=== PATIENT | male | born 1940 | race Caucasian/White ===

== ENCOUNTER 2022-08-01 10:13 | Outpatient (CLI) | payer MEDICARE, SELFPAY | END 2022-08-01 10:14 | disposition home or self-care (01) | PROVIDERS: PCP Family Medicine; Visit Provider Family Medicine | DX: R07.89 Other chest pain (principal) | CPT/HCPCS: 80048; 80061 ==

== ENCOUNTER 2022-08-07 13:48 | Outpatient (CLI) | payer MEDICARE, SELFPAY ==
[2022-08-07 15:03] VITALS: BP 164/79; PULSE 64
--- NOTE | 2022-08-07 15:37 | W.PM.STED ---
Stress Test Note Date Date of test: 08/07/22 Providers Referring provider: Aure Nagy Primary care provider: Richar Gerber Stress test physician: Layton Cruz Stress Test Note Stress test ordered: Stress Echo Indication for test: Chest pain Results discussion: Patient is a very nice 82-year-old gentleman who presents for the above test after discussion the risks benefits and side effects he would like to proceed, pretest EKG shows normal sinus rhythm with a ventricular rate of 60, blood pressure 135/78, no acute ST wave changes are seen. Standard Lico protocol is employed over a time course of 2 minutes 45 seconds, test is terminated because of fatigue, maximum heart rate was 122 which is 103% of the maximum, no acute his dysrhythmias are noted, no acute ST wave changes are noted. Conditioning was felt to be poor. Impression: Negative electrographic portion of stress echo, conditioning was felt to be poor and he did not exercised for very long,, Follow up suggested: Clinical correlation will be needed, once echo portion is read, patient is very poor conditioning, clinical correlation will be needed, if further testing is needed, 1 might consider a Lexiscan, I will leave this up to of ordering physician however. Patient left this testing facility back to baseline
== END 2022-08-07 13:49 | disposition home or self-care (01) ==
LOC: STRESS 13:49
PROVIDERS: PCP Family Medicine; Visit Provider Family Medicine
DX: R07.89 Other chest pain (principal)
CPT/HCPCS: 93016; 93325; 93351

== ENCOUNTER 2022-09-12 10:03 | Outpatient (CLI) | payer MEDICARE, SELFPAY ==
--- OUTSIDE RECORDS SUMMARY | 2022-09-14 01:43 | XMS_ITS | Continuity of Care Document ---
Author Name Unknown Organization [facility] Address [address] [address] [place] [address] Phone Care Team Providers Care Wire Tinner Name Role Phone Cindy Palmer MD Unavailable Unavailable Allergies, Adverse Reactions, Alerts Substance Reaction Status Criticality No Known allergies Medications Medication Instructions Dosage Effective Dates (start - stop) Status Comments Proventil unknownINHALER as needed - Activ e Procedures Procedure Date Colonoscopy Flex; W/remov Les- 08 Colonoscopy Flex; W/bx 1/mx Level Iv-surg Path Gross/micro 08 Colonoscopy Flex; W/bx / Advance Directives Directive Yes / No Effective Date File Name No Information Encounters Encounter Description Practice Location Reason(s) For Visit Diagnoses Date Provider Providers Copied on Encounter [facility] [employer] [facility], [address] [address], [place], [place], [id number], [place] tel:[phone] [facility] Colon Cancer ScreeningDiverti culosis Of ColonProctosigmo iditis/melanosis ColiBenign Neoplasm Lg Bowel Aug-0 7200 8 [address]. [address] [facility], [facility] [address], [place], [place], [id number], [place]. tel:[phone] [facility] [employer] [facility], [address] [address], [place], [place], [address], [place] tel:[phone] [facility] Aug-0 5200 5 No Information Referring Provider: Demian Bey MD K, [address], [place], [address]. tel:[phone] Family History Family Member Type Diagnosis Age At Onset No Information Payers Payer name Insurance type Covered libertarian ID Derek brady(olegario) Georgette CI [id number] Social History Type Description Quantity Date Captured Comments Sex Male Smoking Status No Information Chief Complaint And Reason For Visit No Information Reason For Referral Reason For Referral No Information Plan Of Treatment Date Type Action Status No Information History Of Present Illness Encounter Date Complaint History Of Prese nt Illness No Information Functional Status Date Functional Assessmen t No Information Instructions Date Instruction Additional Infor mation No Information Assessments Type Assessment Date No Information Patient Care Teams Name Effective Dates (start - stop) Status Members No Information
== END 2022-09-12 10:04 | disposition home or self-care (01) ==
LOC: NFLDREF 09-14 01:41
PROVIDERS: PCP Family Medicine; Referring Provider Family Medicine; Visit Provider Family Medicine
DX: Z13.6 Encounter for screening for cardiovascular disorders (principal)
CPT/HCPCS: 80053; 80061

== ENCOUNTER 2022-09-25 20:53 | Outpatient (CLI) | payer MEDICARE, SELFPAY | END 2022-09-25 20:54 | disposition home or self-care (01) | LOC: AMB 09-27 11:56 | PROVIDERS: PCP Family Medicine; Visit Provider Family Medicine | DX: R55 Syncope and collapse (principal) | CPT/HCPCS: A0425; A0427 ==

== ENCOUNTER 2022-09-25 21:29 | Emergency (ER) | payer MEDICARE, SELFPAY ==
[2022-09-25 21:36] VITALS: BP 127/79; PULSE 48; RESP 16; TEMP 36.7; O2SAT 98; BMI 27.8
[2022-09-25 22:51] VITALS: PULSE 56; RESP 18; O2SAT 95
--- NOTE | 2022-09-26 01:00 | ED_ITS ---
HPI - General Adult General Chief complaint: Syncope/Fainted Stated complaint: hypotension Time Seen by Provider: 09/25/22 22:16 History of Present Illness HPI narrative: 82-year-old man presenting to the emergency department after an apparent syncopal event. 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 The room was hot. Began to feel diaphoretic like he was going to pass out and thought he should sit down. Reportedly continued to breathe but was unresponsive for least 30 seconds per bystander report. EMS reported some bradycardia and pallor. Daughter is in the choir but was not present feels that this episode may have been longer. Mr. Rose denies chest pain shortness of breath. No loss of bowel bladder control. No history of seizure like activity. Did have cardiac evaluation in August of this year and while with suboptimal stress test due to fatigue/exhaustion, there were no concerning findings. Underlying history also with a sense of a fluttering or coolness that will occur intermittently described across his left collarbone and down into his upper chest of unclear etiology. Anticipating further potentially cardiac workup through primary care provider per prior conversations. Regarding these syncopal events: Similar has occurred under similar circumstances more than once. Has been in some period of dehydration and overheated and has essentially passed out. Today he does not feel he ate as well. Related Data Home Medications Medication Instructions Recorded Confirmed albuterol sulfate 90 mcg/actuation 2 inhalation PRN 01/03/22 08/21/22 aerosol inhaler aspirin 325 mg tablet 325 mg PO .twice per week 01/03/22 09/25/22 beclomethasone dipropionate 40 2 inhalation PRN 01/03/22 08/21/22 mcg/actuation HFA breath activated aerosol Previous Rx's Medication Instructions Recorded lisinopril 40 mg tablet 40 mg PO DAILY #90 tabs 03/23/22 chlorthalidone 25 mg tablet 12.5 mg PO DAILY #45 tabs 04/10/22 metoprolol tartrate 25 mg tablet 12.5 mg PO DAILY #45 tabs 04/10/22 Allergies Allergy/AdvReac Type Severity Reaction Status Date / Time hydrochlorothiazide Allergy Mild Palpitation Verified 08/21/22 13:26 s Review of Systems Status of ROS: Reports: 10 or more systems reviewed and unremarkable except as noted in History and below [facility] Medical History History of syncope ?Z87.898 - Personal history of other specified conditions (ICD-10) Low back pain (09/26/11) ?M54.50 - Low back pain, unspecified (ICD-10) Family History (Updated 01/02/22 @ 15:30 by Cesar Pranav Watson) Brother Colon cancer Social History Narrative: Social history: 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 Alcohol rare tobacco none drugs none Smoking Status: Never smoker How often do you have a drink containing alcohol: never AUDIT-C Alcohol total score: 0 Non-prescribed substance use: denies use Exam Narrative: Exam Narrative: Mr. Rose is pleasant. Of good energy. Tall man. Breathing easily speaking fluidly. GCS 15. Cranial nerves 2-12 intact. Extraocular movements are full. Pupils are brisk and equal at approximately 2 mm. Moving all extremities out difficulty. Noted edema peripherally in the lower extremities needs well perfused. Lungs are clear. No reproducible discomfort to palpation of the upper back. He does incidentally note that his neck has been a little stiffer lately. Strong equal carotid upstroke. No bruits identified. Heart is rather distant bradycardic. Regular rhythm. Abdomen is overweight soft nontender. Head is atraumatic. Const: Vital Signs, click to edit/add: Vital Signs - 24 hr 09/25/22 21:36 09/25/22 22:51 Temperature 98.1 F Pulse Rate [Left P ulse Oximeter] 48 L 56 L Respiratory Rate 16 18 Blood Pressure [Le ft Upper Arm] 127/79 Pulse Oximetry 98 95 Oxygen Delivery Me thod Room Air Room Air Documenting provider has reviewed patient's vital signs: yes Course Vital Signs Vital signs: Initial Vital Signs Temperature 98.1 F 09/25/22 21:36 Temperature Source Temporal Artery Scan 09/25/22 21:36 Pulse Rate 48 L 09/25/22 21:36 Respiratory Rate 16 09/25/22 21:36 Blood Pressure 127/79 09/25/22 21:36 Blood Pressure Mean 95 09/25/22 21:36 Blood Pressure Position Sitting 09/25/22 21:36 Pulse Oximetry 98 09/25/22 21:36 Oxygen Delivery Method Room Air 09/25/22 21:36 Vital Signs Temperature 98.1 F 09/25/22 21:36 Pulse Rate 48 L 09/25/22 21:36 Respiratory Rate 16 09/25/22 21:36 Blood Pressure 127/79 09/25/22 21:36 Pulse Oximetry 98 09/25/22 21:36 Oxygen Delivery Method Room Air 09/25/22 21:36 Temperature 98.1 F 09/25/22 21:36 Pulse Rate 56 L 09/25/22 22:51 Respiratory Rate 18 09/25/22 22:51 Blood Pressure 127/79 09/25/22 21:36 Pulse Oximetry 95 09/25/22 22:51 Oxygen Delivery Method Room Air 09/25/22 22:51 Medical Decision Making MDM Narrative Medical decision making narrative: This does sound most like a vasovagal near syncopal or actual syncopal event. Heart rate is persistently low per his report and in this case more so with beta-blockade I think. Symptoms are not persistent as 1 might expect with a pulmonary embolus nor is he appearing postictal. This does not seem to be an ischemic cardiac issue nor other symptoms persistent consistent with stroke. We have monitored in the emergency department on property assessment monitor. During my conversation with him and on monitor describes this cool sensation occurring over his left upper chest. No apparent anomaly is appreciated in I do not see dysrhythmia on monitor at that time. I do discuss cardiac workup in particular given concerns expressed by Mr. Rose but particularly by his daughter; Mr. Rose would prefer to return home and do nothing more at this time and then follow up in clinic. He has received 500 mL of normal saline given by EMS. He feels that what he experienced this evening is similar to his prior episodes. See patient discharge plan ECG Data Attestation: I personally reviewed and interpreted this ECG as follows: (sinus bradycardia. First-degree AV block rate of 48. This is following syncopal event. Is beta blocked. Otherwise no ischemic changes ) Discharge Plan Discharge Clinical Impression: Vasovagal syncope Patient Disposition: Home w/ Parent or Adult Condition: Improved Instructions: Syncope (ED) Additional Instructions: Focus on hydration. Follow up with Dr. Gerber to make next steps in plan. Return for recurrence, particularly associated with chest pain or shortness of breath, chest pain with nausea. Prescriptions: No Action aspirin 325 mg tablet 325 mg PO .twice per week albuterol sulfate 90 mcg/actuation HFA aerosol inhaler 2 inhalation PRN beclomethasone dipropionate 40 mcg/actuation HFA aerosol breath activated 2 inhalation PRN chlorthalidone 25 mg tablet 12.5 mg PO DAILY Qty: 45 1RF metoprolol tartrate 25 mg tablet 12.5 mg PO DAILY Qty: 45 1RF lisinopril 40 mg tablet 40 mg PO DAILY Qty: 90 2RF Follow Up/Referrals: Richar Gerber MD [Primary Care Provider] - Stand Alone Forms: Toothpick Info Instructions
== END 2022-09-25 23:11 | disposition home or self-care (01) ==
LOC: ED 22:53
PROVIDERS: Emergency Provider Family Medicine; PCP Family Medicine
DX: R55 Syncope and collapse (principal)
CPT/HCPCS: 93005; 99283; 99284

== ENCOUNTER 2023-04-08 08:06 | Outpatient (CLI) | payer MEDICARE, SELFPAY | END 2023-04-08 08:07 | disposition home or self-care (01) | LOC: NFLDREF 04-10 08:25 | PROVIDERS: PCP Family Medicine; Referring Provider Family Medicine; Visit Provider Family Medicine | DX: I25.10 Atherosclerotic heart disease of native coronary artery without angina pectoris (principal) | CPT/HCPCS: 80061; 84450; 84460 ==

== ENCOUNTER 2024-01-30 07:50 | Outpatient (CLI) | payer MEDICARE, SELFPAY ==
--- OUTSIDE RECORDS SUMMARY | 2024-01-30 10:49 | XMS_ITS | Clinical Summary ---
Author Organization [employer] [facility] Address [place], [place] [address] Care Team Providers Care Ophthalmic Asst Name Role Phone Zainab Acosta Unavailable [phone] Richar Gerber MD Primary Care Provider [phone] Allergies No known active allergies Medications Medication Sig Dispensed Refills Start Date End Date Status metoprolol tartrate (LOPRESSOR) 25 mg tablet Take 12.5 mg by mouth once daily. 10/02/2022 Active chlorthalidone (HYGROTON) 25 mg tablet Take 0.5 Tablets (12.5 mg) by mouth once daily. 0 10/09/2022 Active lisinopriL (PRINIVIL; ZESTRIL) 40 mg tablet Take 1 Tablet (40 mg) by mouth once daily. 0 10/09/2022 Active albuterol HFA (PRO-AIR; VENTOLIN; PROVENTIL) 90 mcg/actuation inhaler Inhale 2 Puffs by mouth 4 times daily if needed. 0 10/09/2022 Active beclomethasone dipropionate (Qvar RediHaler) 40 mcg/actuation HFA inhaler Inhale 1 Puff by mouth two times daily. Doesn't need a spacer or shaking. 0 10/09/2022 Active aspirin (ECOTRIN) 81 mg enteric coated tabletIndications:Cor onary artery disease, unspecified vessel or lesion type, unspecified whether angina present, unspecified whether karuk or transplanted heart Take 1 Tablet (81 mg) by mouth once daily with a meal. 0 10/18/2022 Active rosuvastatin (CRESTOR) 20 mg tabletIndications:Cor onary artery disease, unspecified vessel or lesion type, unspecified whether angina present, unspecified whether karuk or transplanted heart Take 1 Tablet (20 mg) by mouth at bedtime. Please call [phone] 2 months in advance to schedule an office visit with imaging due in October 2024 90 Tablet 3 10/28/2023 Active Active Problems Problem Noted Date Diagnosed Date Sensorineural hearing loss, bilateral 01/29/2013 L4-5 disk bulge with bilateral L5 contact 2010 Degeneration of lumbar or lumbosacral interverte bral disc 08/31/2010 Social History Tobacco Use Types Packs/Day Years Used Date Smoking Tobacco: Never Smokeless Tobacco: Never Alcohol Use Standard Drinks/Week Comments Yes 0 (1 standard drink = 0.6 oz pur e alcohol) moderate Social Connections Answer Date Recorded Frequency of Communication with Friends and Fami ly Not on file 10/09/2022 Sex and Gender Information Value Date Recorded Sex Assigned at Not on file Gender Identity Not on file Sexual Orientation Not on file Obstetrics History Last Filed Vital Signs Vital Sign Reading Time Taken Comments Blood Pressure 112/68 10/11/2023 8:31 AM CDT Pulse 53 10/11/2023 8:31 AM CDT Temperature 36.7 ??C (98 ??F) 11/02/2010 8:37 AM CDT Respiratory Rate 18 10/11/2023 8:31 AM CDT Oxygen Saturation 97% 10/11/2023 8:31 AM CDT Inhaled Oxygen Concentration - - Weight 106 kg (233 lb 9.6 oz) 10/11/2023 8:31 AM CDT Height 193 cm (6' 4) 10/09/2022 1:22 PM CDT Body Mass Index 28.43 10/09/2022 1:22 PM CDT Plan of Treatment Health Maintenance Due Date Last Done Comments Tdap 1952 Depression screening for age 12+ 1953 Tetanus booster 1961 Zoster (shingles) series for age 50+ (1 of 2) 1991 Medicare Wellness for age 65+ 2006 Pneumococcal series for age 65+ (1 of 1 - PCV) 2006 COVID-19 vaccine series (2022-24 season) 2023 02/08/2022, 09/15/2021, 03/28/2021, Additional history exists BMI (ht and wt on same day) for age 18+ 10/10/2023 10/09/2022 Influenza for age 65+ 02/02/2024 Care Teams Ophthalmic Asst Relationship Specialty Start Date End Date Richar Gerber MD [address] [place] [address] PCP - General Family Practice 10/09/22 Zainab Acosta [facility] Audiology 08/07/12
--- OUTSIDE RECORDS SUMMARY | 2024-01-30 10:49 | XMS_ITS | Continuity of Care Document ---
Author Name [facility] Organization [facility] Care Team Providers Care Truck Repair Supervisor Name Role Phone [facility] Unavailable Unavailable Problems Combined list of problems from Department of [facility] and Veterans Affairs facilities. It does not include entries that were removed or entered in error. Problem Status Onset Date Problem Type Date of Resolution Comments Source Hyperlipidemia Active Condition [facility] Hypertension Active Condition [facility] Paroxysmal atrial fibrillation Active Condition October 02, 2023 Entered By: KEKE WEBSTER Comment: CHASVASC 2, not on AC. [facility] Sensorineural hearing loss of bilateral ears [facility] Diagnosis: ICD-10-CM H90.3 Sensorineural hearing loss, bilateral Active Diagnosis [facility] Diagnosis: ICD-10-CM Z01.118 Encntr for exam of ears and hearing w oth abnormal findings Active Diagnosis [facility] Medications Combined list of outpatient medications from Department of [facility] and Veterans Affairs facilities.Medications provided include 1) outpatient medications from the last 15 months, and 2) patient-reported medications. Medication Details Route Status Patient Instructions Prescription Expires Prescription Number Last Dispense Date Ordering Provider Order Date Order Qty Source ALBUTEROL 90MCG/ACTUA T (CFC-F) INHL,ORAL,8 .5GM DOSE COUNTER ALBUTERO L 90MCG/AC TUAT (CFC-F) INHL,ORA L,8.5GM DOSE COUNTER Non-VA INHALE 1 PUFF BY MOUTH QID PRN FOR SHORTNES S OF BREATH October 02, 2023 Non-[facility] Document ed by: ERIBERTO WEBSTER Document ed at: [facility] RESPIR ATORY (INHAL ATION) ACTIVE KEKE WEBSTER [address] [facility] ASPIRIN TAB ASPIRIN TAB Non-VA TAKE 81MG BY MOUTH EVERY DAY FOR HEART DISEASE October 02, 2023 Non-VA Document ed by: ERIBERTO WEBSTER Document ed at: [facility] ORAL ACTIVE KEKE WEBSTER [address] [facility] BECLOMETHAS ONE DIPROPIONAT E 80MCG/ACTUA T (HFA) INHL,ORAL,7 .3GM BECLOMET HASONE DIPROPIO FELIPE 80MCG/AC TUAT (HFA) INHL,ORA L,7.3GM Non-VA INHALE 1 PUFF BY INHALATI ON EVERY DAY NEEDED FOR ASTHMA October 02, 2023 Non-VA Document ed by: ERIBERTO WEBSTER Document ed at: [facility] RESPIR ATORY (INHAL ATION) ACTIVE KEKE WEBSTER [address] [facility] CHLORTHALID ONE 25MG TAB CHLORTHA LIDONE 25MG TAB Non-VA TAKE ONE-HALF TABLET BY MOUTH EVERY DAY FOR BLOOD PRESSURE October 02, 2023 Non-VA Document ed by: ERIBERTO WEBSTER Document ed at: [facility] ORAL ACTIVE KEKE WEBSTER [address] [facility] LISINOPRIL 40MG TAB LISINOPR [place] 40MG TAB Non-VA TAKE ONE TABLET BY MOUTH EVERY DAY FOR BLOOD PRESSURE October 02, 2023 Non-VA Document ed by: ERIBERTO WEBSTER Document ed at: [facility] ORAL ACTIVE KEKE WEBSTER [address] [facility] METOPROLOL TARTRATE TAB METOPROL OL TARTRATE TAB Non-VA TAKE 12.5MG BY MOUTH EVERY DAY FOR ATRIAL FIBRILLA TION October 02, 2023 Non-VA Document ed by: ERIBERTO WEBSTER Document ed at: [facility] ORAL ACTIVE KEKE WEBSTER [address] [facility] ROSUVASTATI N CA 20MG TAB ROSUVAST ATIN CA 20MG TAB Non-VA TAKE ONE TABLET BY MOUTH AT BEDTIME FOR CHOLESTE ROL October 02, 2023 Non-VA Document ed by: ERIBERTO WEBSTER Document ed at: [facility] ORAL ACTIVE KEKE WEBSTER [address] [facility] Immunizations Combined list of available immunizations from the Department of Defense and [facility] Affairs facilities. Immunization Series Date Given Administered By Site Reaction Lot Number CVX Code Drug Laundry Supervisor Status Comments Source HEP A, ADULT [address] [facility] TYPHOID, VICPS [address] [facility] COVID-19 (PFIZER), MRNA, LNP-S, PF, SILVA-SUCROSE, 3 MCG/0.3 ML (AGES 6 MO-4 YEARS) 2022 308 complet ed [facility] TDAP 2022 115 complet [facility] INFLUENZA, INJECTABLE, QUADRIVALENT, PRESERVATIVE FREE 2021 150 complet [facility] COVID-19 (MODERNA), MRNA, LNP-S, BIVALENT, PF, 50 MCG/0.5 ML OR 25MCG/0.25 ML DOSE 2021 229 complet [facility] COVID-19 (MODERNA), MRNA, LNP-S, PF, 100 MCG/0.5ML DOSE OR 50 MCG/0.25ML DOSE 2021 207 complet [facility] COVID-19 (MODERNA), MRNA, LNP-S, PF, 100 MCG/0.5ML DOSE OR 50 MCG/0.25ML DOSE 2020 207 complet [facility] INFLUENZA, HIGH-DOSE, QUADRIVALENT 2020 197 complet [facility] COVID-19 (MODERNA), MRNA, LNP-S, PF, 100 MCG/0.5ML DOSE OR 50 MCG/0.25ML DOSE 2020 207 complet [facility] COVID-19 (MODERNA), MRNA, LNP-S, PF, 100 MCG/0.5ML DOSE OR 50 MCG/0.25ML DOSE 2020 207 complet [facility] INFLUENZA, INJECTABLE, QUADRIVALENT, PRESERVATIVE FREE 2019 150 complet [facility] INFLUENZA, HIGH DOSE SEASONAL 2018 135 complet [facility] PNEUMOCOCCAL POLYSACCHARID E PPV23 2018 33 complet [facility] INFLUENZA, SEASONAL, INJECTABLE, PRESERVATIVE FREE 2017 140 complet [facility] INFLUENZA, HIGH DOSE SEASONAL 2016 135 complet [facility] INFLUENZA, HIGH DOSE SEASONAL 2015 135 complet [facility] INFLUENZA, HIGH DOSE SEASONAL [address] [facility] PNEUMOCOCCAL CONJUGATE PCV 13 [address] [facility] INFLUENZA, HIGH DOSE SEASONAL [address] [facility] INFLUENZA, SEASONAL, INJECTABLE, PRESERVATIVE FREE [address] [facility] ZOSTER LIVE [address] [facility] INFLUENZA, SEASONAL, INJECTABLE, PRESERVATIVE FREE [address] [facility] TDAP [address] [facility] INFLUENZA, SEASONAL, INJECTABLE, PRESERVATIVE FREE [address] [facility] INFLUENZA, SEASONAL, INJECTABLE, PRESERVATIVE FREE [address] [facility] INFLUENZA, UNSPECIFIED FORMULATION [address] [facility] INFLUENZA, UNSPECIFIED FORMULATION [address] [facility] INFLUENZA, UNSPECIFIED FORMULATION [address] [facility] PNEUMOCOCCAL POLYSACCHARID E PPV23 [address] [facility] TD (ADULT), 2 LF TETANUS TOXOID, PRESERVATIVE FREE, ADSORBED [address] [facility] INFLUENZA, UNSPECIFIED FORMULATION [address] [facility] INFLUENZA, SEASONAL, INJECTABLE [address] [facility] DT (PEDIATRIC) [address] [facility] DT (PEDIATRIC) [address] [facility] Vital Signs Combined list of inpatient and outpatient Vital Signs from Department of Defense and Veterans Affairs, ranging from 12 months to all on record, depending upon the facility. Vital Sign Value Date Comments Source Encounters Combined list of: 1) Encounters from Department of Veterans Affairs facilities going back up to thelast 18 months. 2) Encounters from the Department of Defense facilities going back up to 280 months. Location Location Details Encounter Type Encounter Number Reason For Visit Attending Provider ADM Date DC Date Status Disposition Source [place] [facility] Encounter [id number] 10/02 [facility] [place] [facility] En[facility] [id number] 02[facility]26 [place] [facility] [place] [facility] En[facility] [id number] 07/29 [place] [facility] [place] [facility] En[facility] [id number] 09[place]17 [place] [facility] TYMPANOMET RY & REFLEX THRESH [id number] Diagnos is: ICD-10- CM Z01.118 Encntr for exam of ears and hearing w oth abnorma l finding s
SEAN LANDIS 09/22 [facility] O/P NEW MOD 45 MIN [id number] Diagnos is: ICD-10- CM H90.3 Sensori neural hearing loss, bilater al
Kojo MORRISON 10/01 [facility] CON[facility]ITY EVALU[facility] [id number] Diagnos is: ICD-10- CM H90.3 Sensori neural hearing loss, bilater al
SEAN LANDIS 10/23 [facility] Social History Combined list of available smoking, tobacco, and other social history from Department of Defense and Veterans Affairs facilities. Social History Type Response Date Comment Sourc e Tobacco smoking status [facility] NEVER USED 10/02/2023 [facility]
== END 2024-01-30 07:51 | disposition home or self-care (01) ==
LOC: NFLDREF 10:47
PROVIDERS: PCP Family Medicine; Referring Provider Family Medicine; Visit Provider Family Medicine
DX: I10 Essential (primary) hypertension (principal); I48.0 Paroxysmal atrial fibrillation; I25.10 Atherosclerotic heart disease of native coronary artery without angina pectoris
CPT/HCPCS: 80053; 80061

== ENCOUNTER 2025-01-15 10:24 | Outpatient (CLI) | payer MEDICARE, SELFPAY ==
--- NOTE | 2025-01-15 11:15 | CRLHL7_ITS ---
For Patients: As a result of the Century Cures Act, medical imaging exams and procedure reports are released immediately into your electronic medical record. You may view this report before your referring provider. If you have questions, please contact your health care provider. INDICATION: COMPARISON: None. TECHNIQUE: A compression venous ultrasound exam was performed of the right lower extremity using seth-scale imaging, color Doppler and spectral Doppler analysis. FINDINGS: Sonographic imaging of the right lower extremity demonstrates normal compressibility and color Doppler venous blood flow within the common femoral vein, deep femoral vein, and the proximal greater saphenous vein. Within the thigh, the femoral vein is patent and compressible. At a lower level, the popliteal and posterior tibial veins also show normal compressibility and color Doppler venous blood flow. Limited imaging of the contralateral groin demonstrates a normal spectral waveform and color Doppler venous blood flow within the left common femoral vein. IMPRESSION: No evidence of deep vein thrombosis within the right lower extremity. Dictated by Yordy Ho MD @ 01/15/2025 11:40:35 AM (Electronically Signed)
== END 2025-01-15 10:25 | disposition home or self-care (01) ==
PROVIDERS: PCP Family Medicine; Visit Provider Family Medicine
DX: M79.89 Other specified soft tissue disorders (principal); I10 Essential (primary) hypertension; R73.9 Hyperglycemia, unspecified; M10.071 Idiopathic gout, right ankle and foot
CPT/HCPCS: 80048; 84550; 93971

== ENCOUNTER 2025-04-16 08:15 | Outpatient (CLI) | payer MEDICARE, SELFPAY | END 2025-04-16 08:16 | disposition home or self-care (01) | LOC: NFLDREF 04-21 17:58 | PROVIDERS: PCP Family Medicine; Referring Provider Family Medicine; Visit Provider Family Medicine | DX: E78.5 Hyperlipidemia, unspecified (principal) | CPT/HCPCS: 80053; 80061 ==